=== PATIENT | female | born 2000 | race Caucasian/White ===

== ENCOUNTER → 2019-06-10 | Outpatient (CLI) | payer OTHER ==
[2019-06-10 12:34] LABS: BASOPHILS % (AUTO) 0 % (0-10); EOSINOPHILS % (AUTO) 1 % (0-10); HEMATOCRIT 33 % (35-52); HEMOGLOBIN 11.2 G/DL (11.5-16.0); LYMPHOCYTES % (AUTO) 20 % (12-44); MEAN CORPUSCULAR HEMOGLOBIN 33 PG (25-34); MEAN CORPUSCULAR HGB CONC 34 G/DL (32-36); MEAN CORPUSCULAR VOLUME 97 FL (80-99); MEAN PLATELET VOLUME 8.6 FL (7.4-10.4); MONOCYTES % (AUTO) 7 % (0-12); NEUTROPHILS % (AUTO) 71 % (42-75); PLATELET COUNT 226 10^3/uL (130-400); RED CELL DISTRIBUTION WIDTH 11.8 % (10.0-14.5); WHITE BLOOD COUNT 7.8 10^3/uL (4.3-11.0)
[2019-06-10 12:35] LABS: EOSINOPHILS # (AUTO) 0.1 10^3/uL (0.0-0.3); LYMPHOCYTES # (AUTO) 1.6 X 10^3 (1.0-4.0); MONOCYTES # (AUTO) 0.6 X 10^3 (0.0-1.0); NEUTROPHILS # (AUTO) 5.5 X 10^3 (1.8-7.8)
== END ==
LOC: LAB FS 12:14
PROVIDERS: ATTEND Family Medicine
DX: O26.899 Other specified pregnancy related conditions, unspecified trimester (principal)
CPT/HCPCS: 36415; 85025; 86780; 86850

== ENCOUNTER → 2019-07-26 | Outpatient (CLI) | payer OTHER | LOC: LABNPT 15:11 | PROVIDERS: ATTEND Family Medicine | DX: Z34.90 Encounter for supervision of normal pregnancy, unspecified, unspecified trimester (principal); Z3A.00 Weeks of gestation of pregnancy not specified | CPT/HCPCS: 87081 ==

== ENCOUNTER 2019-08-23 05:49 | Inpatient (IN) | payer OTHER ==
[~2019-08-23] VITALS: Ht 167.7 cm; Wt 64.4 kg
[2019-08-23] VITALS (49 sets, daily range): BP systolic 88–131; BP diastolic 51–82
--- OUTSIDE RECORDS SUMMARY | 2019-08-23 05:54 | XMS REPORT | Continuity of Care Document ---
Author Organization Unknown Address Unknown Phone Unavailable Allergies There is no data. Medications There is no data. Problems Date Dx Coded Attending Type Code Diagnosis Diagnosed By 06/12/2019 ANALIA POLO MD Ot O26.899 OT RELATED CONDITIONS, UNSPEC 07/12/2019 ANALIA POLO MD Ot O26.899 OT RELATED CONDITIONS, UNSPEC 07/26/2019 ANALIA POLO MD, Ot O26.899 OT RELATED CONDITIONS, UNSPEC 08/19/2019 ANALIA POLO MD Ot Z34.90 ENCNTR FOR SUPRVSN OF NORMAL , 08/19/2019 ANALIA POLO MD Ot Z3A.00 WEEKS OF GESTATION OF NOT SPEC 08/20/2019 ANALIA POLO MD Ot Z34.90 ENCNTR FOR SUPRVSN OF NORMAL , 08/20/2019 ANALIA POLO MD Ot Z3A.00 WEEKS OF GESTATION OF NOT SPEC 08/20/2019 ANALIA POLO MD Ot Z34.90 ENCNTR FOR SUPRVSN OF NORMAL , 08/20/2019 ANALIA POLO MD Ot Z3A.00 WEEKS OF GESTATION OF NOT SPEC Procedures There is no data. Results Test Result Range GC/CHLAMYDIA (SWAB OR URINE)-RAPID - 13:10 CHLAMYDIA TRACHOMATIS RNA, TMA NOT DETECTED NOT DETECTED NEISSERIA GONORRHOEAE RNA, TMA NOT DETECTED NOT DETECTED COMMENT NRG ANTIBODY SCREEN - 05/10/19 13:35 ANTIBODY SCREEN, RBC W/REFL ID, TITER AND AG NO ANTIBODIES DETECTED NRG SYPHILIS (RPR W/ REFLEX CONFIRMATION) - 05/10/19 13:35 RPR (DX) W/REFL TITER AND CONFIRMATORY TESTING NON-REACTIVE NON-REACTIVE HEP B SURFACE ANTIGEN - 05/10/19 13:35 HEPATITIS B SURFACE ANTIGEN NON-REACTIVE NON-REACTIVE RUBELLA IMMUNE STATUS - 05/10/19 13:35 RUBELLA ANTIBODY (IGG) <0.90 index NRG CULTURE, URINE - 05/10/19 13:35 CULTURE, URINE, ROUTINE SEE NOTE NRG Streptococcus agalactiae detection by or ganism specific culture - 07/26/19 00:00 QUANTITY OF GROWTH . NRG Streptococcus agalactiae detection by organism specifi c culture [id number] NRG Encounters ACCT No. Visit Date/Time Discharge Status Pt. Type Provider Facility Loc./Unit Complaint [id number] 05/10/2019 11:40:00 05/10/2019 23:59: 59 CLS Outpatient ANALIA POLO [facility] [id number] 05/10/2019 11:40:00 Document Registration [id number] 07/26/2019 15:11:00 020 23:59:59 CLS Outpatient ANALIA POLO MD [facility] LABNPT Z34.90 [id number] 06/10/2019 12:14:00 020 23:59:59 CLS Outpatient ANALIA POLO MD [facility] LAB FS O26.899
--- NOTE | 2019-08-23 06:00 | NUR ---
CHEYENNE ABDULLAHI presented to unit via AMBULATORY from ED, accompanied by S/O, with c/o INDUCTION 41 06/01. CHEYENNE ABDULLAHI weighed, gowned, voided, and to bed. EFHM and TOCO applied, VS taken. CHEYENNE ABDULLAHI oriented to bed controls, call light, TV, heat, and A/C controls.
[2019-08-23] MEDS: D5 LR IV SOLUTION 1,000 ML IV SCH ×2 (06:29→14:25)
[2019-08-23 06:33] LABS: BASOPHILS % (AUTO) 0 % (0-10); EOSINOPHILS # (AUTO) 0.1 10^3/uL (0.0-0.3); EOSINOPHILS % (AUTO) 1 % (0-10); HEMATOCRIT 35 % (35-52); HEMOGLOBIN 11.8 G/DL (11.5-16.0); LYMPHOCYTES # (AUTO) 1.9 X 10^3 (1.0-4.0); LYMPHOCYTES % (AUTO) 24 % (12-44); MEAN CORPUSCULAR HEMOGLOBIN 32 PG (25-34); MEAN CORPUSCULAR HGB CONC 34 G/DL (32-36); MEAN CORPUSCULAR VOLUME 95 FL (80-99); MEAN PLATELET VOLUME 9.8 FL (7.4-10.4); MONOCYTES # (AUTO) 0.8 X 10^3 (0.0-1.0); MONOCYTES % (AUTO) 10 % (0-12); NEUTROPHILS # (AUTO) 5.3 X 10^3 (1.8-7.8); NEUTROPHILS % (AUTO) 66 % (42-75); PLATELET COUNT 230 10^3/uL (130-400); RED CELL DISTRIBUTION WIDTH 12.7 % (10.0-14.5)
[2019-08-23] MEDS ORDERED: OXYTOCIN PRE-MIX DRIP 500 ML IV ONE (07:22)
[2019-08-23] MEDS ORDERED: OXYTOCIN PRE-MIX DRIP 500 ML IV SCH ×2 (07:29→16:02)
[2019-08-23] MEDS ORDERED: ONDANSETRON 4 MG/2 ML (SDV) Z0FRAN ONE (07:54)
[2019-08-23] MEDS ORDERED: ONDANSETRON 4 MG/2 ML (SDV) Z0FRAN IVP PRN (08:00)
[2019-08-23] MEDS ORDERED: fentaNYL INJECTION 100 MCG/2 ML AMP ONE ×2 (09:14→09:57)
[2019-08-23] MEDS ORDERED: fentaNYL INJECTION 100 MCG/2 ML AMP IVP PRN (09:30)
[2019-08-23] MEDS ORDERED: fentaNYL 2 mcg/ml BUPIVA 0.125 100 ML ONE (09:53)
--- NOTE | 2019-08-23 09:54 | NUR ---
anesthesia notified of pt's request for epidural placement.
[2019-08-23] MEDS ORDERED: BUPIVACAINE 0.25% 30 ML (SENSORCAINE) VIAL ONE (09:57)
--- NOTE | 2019-08-23 10:04 | NUR ---
here for epidural placement. Procedure explained, consent reviewed and signed by anesthesia. Questions answered to patient's satisfaction. Time out taken to verify correct patient/procedure. 1008-Patient up to side of bed, assisted into sitting position. Betadine prep done x3 and sterile drape applied. 1014- Local done, see anesthesia record. 1019-Test dose given, see anesthesia record for drug and dosage. Epidural catheter secured in place. Epidural placement complete. 1022- Assisted back into bed, monitors adjusted. Epidural dosed, see anesthesia record. Epidural of Fentanyl/Bupvicaine @12cc/hr stated per pump. Patient tolerated procedure well.
[2019-08-23] MEDS ORDERED: LACTATED RINGERS 1,000 ML IV ONE (10:35)
[2019-08-23] MEDS ORDERED: CATHETER FLUSH 10 ML SYR IV PRN (10:45)
[2019-08-23] MEDS ORDERED: diphenhydrAMINE 50 MG/ML INJ (BENADRYL) IV PRN (10:45)
[2019-08-23] MEDS ORDERED: EPIDURAL (fentaNYL 2 MCG/ML BUPIVA 0.125%)100 ML BAG EPI SCH (10:45)
[2019-08-23] MEDS ORDERED: NALOXONE 0.4 MG/ML 1 ML (NARCAN) VIAL IV PRN (10:45)
[2019-08-23] MEDS ORDERED: ONDANSETRON 4 MG/2 ML (SDV) Z0FRAN IV PRN (10:45)
[2019-08-23] MEDS ORDERED: LACTATED RINGERS 2,000 ML IV ONE (12:43)
--- NOTE | 2019-08-23 14:02 | History & Physical-OB ---
OB - Chief Complaint & HPI Date/Time Date of Admission: Date of Admission: Aug 23, 2019 at 05:49 Date seen by a Provider: Aug 23, 2019 Time Seen by a Provider: 14:00 Chief Complaint/History OB-Reason for Admission/Chief: Induction of Labor Hx : 1 Hx Para: 0 Expected Date of Delivery: Aug 14, 2019 Gestational Age in Weeks: 41 Gestational Age in Days: 1 Indication for induction: post dates Admission Nurse Assessment Rev: Yes Allergies and Home Medications Allergies Coded Allergies: No Known Drug Allergies (Unverified , 08/23/19) Patient Home Medication List Home Medication List Reviewed: Yes OB - History Hx of Present Care: Yes Ultrasounds: Normal mid trimester US Obstetrical Complications: None Medical Complications: None Delivery History Adverse Rxn to Tranfusion: No Patient Past Medical History previously healthy Social History/Family History Recent Infectious Disease Expo: No Alcohol Use: Denies Use Recreational Drug Use: No OB - Admission Exam Physical Exam Vitals: Vital Signs 08/23/19 08/23/19 10:15 12:00 Temp 36.7 Pulse 59 Resp 18 B/P (MAP) 107/60 (76) Pulse Ox 98 O2 Delivery Room Air HEENT: NCAT Heart: Rhythm Normal Lungs: Clear Abdomen: Gravid Extremities: Normal Reflexes: Normal Cervical Dilatation: 7cm Effacement: 100% Station: 0 Membranes: Ruptured Amniotic Fluid: Thin Meconium Heart Rate: 120's Accelerations: Accelerations Present Decelerations: Early Decelerations Short Term Variability: Present Group Home Variability: Average (6-25) Contractions on Admission: < 5 Minutes Apart Labs Laboratory Tests Test 08/23/19 06:10 Range/Units White Blood Count 8.0 4.3-11.0 10^3/uL Red Blood Count 3.64 L 4.35-5.85 10^6/uL Hemoglobin 11.8 11.5-16.0 G/DL Hematocrit 35 35-52 % Mean Corpuscular Volume 95 80-99 FL Mean Corpuscular Hemoglobin 32 25-34 PG Mean Corpuscular Hemoglobin Concent 34 32-36 G/DL Red Cell Distribution Width 12.7 10.0-14.5 % Platelet Count 230 130-400 10^3/uL Mean Platelet Volume 9.8 7.4-10.4 FL Neutrophils (%) (Auto) 66 42-75 % Lymphocytes (%) (Auto) 24 12-44 % Monocytes (%) (Auto) 10 0-12 % Eosinophils (%) (Auto) 1 0-10 % Basophils (%) (Auto) 0 0-10 % Neutrophils # (Auto) 5.3 1.8-7.8 X 10^3 Lymphocytes # (Auto) 1.9 1.0-4.0 X 10^3 Monocytes # (Auto) 0.8 0.0-1.0 X 10^3 Eosinophils # (Auto) 0.1 0.0-0.3 10^3/uL Basophils # (Auto) 0.0 0.0-0.1 10^3/uL OB - Assessment/Plan/Diagnosis Assessment Admission Dx Induction of labor at 41 1/7 wga. Admission Status: Inpatient Order (span 2 midnights) Reason for Inpatient Admission: Induction of labor Plan Plan: Induction Induction Method: per Pitocin Protocol Other Plan Pain controlled with epidural. GBS negative. Pitocin for induction. ANALIA POLO MD Aug 23, 2019 14:02
--- NOTE | 2019-08-23 15:15 | NUR ---
FFu/1.
[2019-08-23] MEDS ORDERED: LIDOCAINE/EPI 2% 1:200,00 (XYLOCAINE) 10 ML VIAL ONE (15:16)
[2019-08-23] MEDS ORDERED: MINERAL OIL CONCENTRATE 99.9% 15 ML UDC ONE (15:16)
--- NOTE | 2019-08-23 16:07 | OB Labor & Delivery Record ---
Vag Delivery Note Vag Delivery Note Date of Delivery: 08/23/19 Preoperative Diagnosis: Kassidy Mcclellan is a (19 /Para 1 / 0, Gestational Age (wks)41with [1 day] Postoperative Diagnosis: Same Surgeon: ANALIA POLO Sheeter Waxer Operator: [none] Anesthesia: [epidural] Delivery Type: [] Findings: [] Viable [male] infant, apgars [8/9], weight [8 pounds 1 ounce] Lacerations: 2nd degree perineal Intact placenta with 3 vessel cord. One loose nuchal cord Estimated Blood Loss: [300] ml Complications: None Condition: Stable Description of Procedure: The patient is a 19 year old female who presented [for induction of labor]. She was admitted and informed consent was obtained. Her labor course was remarkable for [nothing] She progressed to complete dilatation and began to push. She was then set up for delivery. The 's head was delivered atraumatically in the [OA] position. The shoulders and remainder of the infant's body were then delivered without difficulty. Upon delivery, the head was held below the level of the perineum and the mouth and nares were bulb suctioned. The cord was doubly clamped and cut by father of the baby on maternal abdomen. An intact placenta with 3-vessel cord delivered via Liliana and there was found to be minimal bleeding.~ Vigorous fundal massage was performed and the fundus was found to be firm. IV oxytocin was given. Examination of the vagina and perineum revealed a [2nd degree perineal] laceration repaired in the usual fashion with 3-0 vicryl suture. Following the repair, sponge, instrument and needle counts were correct. Mom and baby were both in stable condition in the labor suite. Vitals - Labs Vital Signs - I&O Vital Signs Date Time Temp Pulse Resp B/P (MAP) Pulse Ox O2 Delivery O2 Flow Rate FiO2 08/23/19 14:45 46 18 91/54 (66) 96 Room Air 08/23/19 14:30 56 18 103/60 (74) 96 Room Air 08/23/19 14:15 56 18 103/60 (74) 96 Room Air 08/23/19 14:00 36.5 58 18 113/70 (84) 99 Room Air 08/23/19 13:45 49 18 107/64 (78) 99 Room Air 08/23/19 13:30 51 18 110/68 (82) 98 Room Air 08/23/19 13:15 52 18 109/66 (80) 99 Room Air 08/23/19 13:00 59 18 107/71 (83) 99 Room Air 08/23/19 12:45 50 18 112/60 (77) 98 Room Air 08/23/19 12:30 52 18 110/64 (79) 98 Room Air 08/23/19 12:15 37.0 44 18 107/62 (77) 97 Room Air 08/23/19 12:00 59 18 107/60 (76) 98 Room Air 08/23/19 11:45 51 18 105/64 (78) 98 Room Air 08/23/19 11:30 55 18 102/65 (77) 98 Room Air 08/23/19 11:15 55 18 109/69 (82) 99 Room Air 08/23/19 11:05 51 18 114/62 (79) 98 Room Air 08/23/19 11:00 53 115/58 (77) 98 Room Air 08/23/19 10:55 48 105/58 (74) 97 Room Air 08/23/19 10:50 55 18 96/56 (69) 100 Room Air 08/23/19 10:45 50 103/64 (77) 98 Room Air 08/23/19 10:40 53 105/57 (73) 98 Room Air 08/23/19 10:34 56 88/51 (63) 97 Room Air 08/23/19 10:20 56 18 116/62 (80) 99 Room Air 08/23/19 10:15 36.7 67 18 125/78 (94) 100 Room Air 08/23/19 10:10 61 18 125/75 (92) 100 Room Air 08/23/19 10:05 62 18 113/77 (89) Room Air 08/23/19 09:50 51 18 100/59 (73) Room Air 08/23/19 09:35 55 18 105/56 (72) Room Air 08/23/19 09:20 64 18 112/70 (84) Room Air 08/23/19 09:05 64 18 114/72 (86) Room Air 08/23/19 08:50 60 18 117/71 (86) Room Air 08/23/19 08:35 63 18 112/76 (88) Room Air 08/23/19 08:20 49 18 108/71 (83) Room Air 08/23/19 08:05 45 18 120/76 (91) Room Air 08/23/19 07:55 72 18 92/59 (70) Room Air 08/23/19 07:40 36.8 85 18 100/70 (80) 98 Room Air 08/23/19 06:29 36.6 57 18 98 Room Air Labs Laboratory Tests 08/23/19 06:10: White Blood Count 8.0, Red Blood Count 3.64L, Hemoglobin 11.8, Hematocrit 35, Mean Corpuscular Volume 95, Mean Corpuscular Hemoglobin 32, Mean Corpuscular Hemoglobin Concent 34, Red Cell Distribution Width 12.7, Platelet Count 230, Mean Platelet Volume 9.8, Neutrophils (%) (Auto) 66, Lymphocytes (%) (Auto) 24, Monocytes (%) (Auto) 10, Eosinophils (%) (Auto) 1, Basophils (%) (Auto) 0, Neutrophils # (Auto) 5.3, Lymphocytes # (Auto) 1.9, Monocytes # (Auto) 0.8, Eos inophils # (Auto) 0.1, Basophils # (Auto) 0.0 ANALIA POLO MD Aug 23, 2019 16:06
[2019-08-23] MEDS ORDERED: TETANUS,DIPTH,PERTUSS P/F (BOOSTRIX) 0.5 ML VIAL IM ONE (16:15)
[2019-08-23] MEDS ORDERED: BENZOCAINE/MENTHOL (DERMOPLAST) 60 ML CAN TP PRN (16:15)
[2019-08-23] MEDS ORDERED: MEASLES,MUMPS,RUBELLA 1 EA INJ SQ ONE (16:15)
[2019-08-23] MEDS ORDERED: WITCH HAZEL(TUCKS) 40 EA JAR TOP PRN (16:15)
--- NOTE | 2019-08-23 16:42 | NUR ---
FFu/1. and remain @ side.
--- NOTE | 2019-08-23 17:15 | NUR ---
FFu/1. in arms. no sx's of distress noted.
[2019-08-23] MEDS: ACETAMINOPHEN 500 MG TAB (TYLENOL) PO SCH (18:25)
[2019-08-23] MEDS: IBUPROFEN 600 MG (MOTRIN) TAB PO SCH (18:25)
--- NOTE | 2019-08-23 18:35 | NUR ---
FFu/1. moderate rubra noted. no clots expressed. keyon-care offered. v-pad and panties in place. pt transferred to room 309 via w/c with and infant @ side.
--- NOTE | 2019-08-23 19:00 | NUR ---
report given to TERRY Saleh.
--- NOTE | 2019-08-23 21:30 | NUR ---
Pt calls rn to room, reports not making it to the bathroom, pt assisted standby to bathroom, pericare assist. Bed pads saturated in urine and bedding changed. First void since delivery noted. Pt denies further needs. will cont to monitor.
[2019-08-23] MEDS ORDERED: CATHETER FLUSH 10 ML SYR IV SCH (22:00)
[2019-08-24 00:23] VITALS: BP 85/47
[2019-08-24] MEDS: IBUPROFEN 600 MG (MOTRIN) TAB PO SCH ×2 (00:23→05:29)
[2019-08-24] MEDS: DOCUSATE SODIUM 100 MG (COLACE) CAP PO SCH ×2 (00:23→09:31)
[2019-08-24] MEDS: ACETAMINOPHEN 500 MG TAB (TYLENOL) PO SCH ×2 (01:57→09:31)
[2019-08-24 05:31] VITALS: BP 98/58
[2019-08-24 05:41] LABS: BASOPHILS % (AUTO) 0 % (0-10); EOSINOPHILS % (AUTO) 0 % (0-10); HEMATOCRIT 29 % (35-52); HEMOGLOBIN 9.6 G/DL (11.5-16.0); LYMPHOCYTES # (AUTO) 1.6 X 10^3 (1.0-4.0); LYMPHOCYTES % (AUTO) 16 % (12-44); MEAN CORPUSCULAR HEMOGLOBIN 32 PG (25-34); MEAN CORPUSCULAR HGB CONC 33 G/DL (32-36); MEAN CORPUSCULAR VOLUME 97 FL (80-99); MEAN PLATELET VOLUME 9.5 FL (7.4-10.4); MONOCYTES # (AUTO) 0.8 X 10^3 (0.0-1.0); MONOCYTES % (AUTO) 8 % (0-12); NEUTROPHILS # (AUTO) 7.8 X 10^3 (1.8-7.8); NEUTROPHILS % (AUTO) 76 % (42-75); PLATELET COUNT 176 10^3/uL (130-400); RED CELL DISTRIBUTION WIDTH 12.9 % (10.0-14.5); WHITE BLOOD COUNT 10.3 10^3/uL (4.3-11.0)
[2019-08-24 09:25] VITALS: BP 98/48
--- NOTE | 2019-08-24 10:32 | Anesthesia-Regional Post-Op ---
Regional Patient Condition Mental Status: Alert, Oriented x3 Circulation: Same as Pre-Op Headache: Absent Sensation: Full Recovery Motor Block: Absent Post Op Complications Complications None Follow Up Care/Instructions Patient Instructions None needed. Anesthesia/Patient Condition Patient is doing well, no complaints, stable vital signs, no apparent adverse anesthesia problems. No complications reported per nursing. SARA OLSON CRNA Aug 24, 2019 10:32
--- NOTE | 2019-08-24 11:22 | Discharge Summary ---
Discharge Inst-[facility] Reconcile Patient Problems Problems Reviewed?: Yes Depart Medications New, Converted or Re-Newed RX: Call to Patients Pharmacy Follow Up/Instructions Goal/Follow Up: [address] Mai Activity Activity: Activity as Tolerated Driving Instructions: You May Drive NO SMOKING: NO SMOKING Nothing Inside Vagina: No Douching, No [place], No Tampons Diet Discharge Diet: No Restrictions Symptoms to Report to : Bleeding Excessive, Fever Over 101 Degrees F, Pain/Pressure in Jaw, Vaginal Bleeding Increase, Vaginal Discharge ANALIA Bojorquez MD Aug 24, 2019 11:22
--- NOTE | 2019-08-24 11:25 | Discharge Summary ---
Diagnosis/Chief Complaint Date of Admission Aug 23, 2019 at 05:49 Date of Discharge Admission Diagnosis Admission Diagnosis Term induction of labor. Discharge Diagnosis Term vaginal delivery at 41 1/7 wga. Problems/Diagnosis: (1) care following vaginal delivery Discharge Summary-OBS Procedures None. Discharge Physical Examination Allergies: Coded Allergies: No Known Drug Allergies (Unverified , 08/23/19) Vitals & I&Os Intake and Output 08/24/19 00:00 Intake Total 1500 ml Balance 1500 ml Vital Sign - Last 12Hours Date Time Temp Pulse Resp B/P (MAP) Pulse Ox O2 Delivery O2 Flow Rate FiO2 08/24/19 05:31 36.8 56 18 98/58 (71) 98 Room Air 08/23/19 15:32 15.00 General Appearance: Alert, Oriented X3 HEENT: Atraumatic Cardiovascular: Regular Rate Abdominal: Other (fundus firm below umbilicus) Extremities: No Edema Skin: No Rashes Neuro: Normal Gait Psych/Mental Status: Mental Status NL Hospital Course Patient's post- course was uneventful. Labs Laboratory Tests 08/24/19 05:28: White Blood Count 10.3, Red Blood Count 3.01L, Hemoglobin 9.6L, Hematocrit 29L, Mean Corpuscular Volume 97, Mean Corpuscular Hemoglobin 32, Mean Corpuscular Hemoglobin Concent 33, Red Cell Distribution Width 12.9, Platelet Count 176, Mean Platelet Volume 9.5, Neutrophils (%) (Auto) 76H, Lymphocytes (%) (Auto) 16, Monocytes (%) (Auto) 8, Eosinophils (%) (Auto) 0, Basophils (%) (Auto) 0, Neutrophils # (Auto) 7.8, Lymphocytes # (Auto) 1.6, Monocytes # (Auto) 0.8, Eosinophils # (Auto) 0.0, Basophils # (Auto) 0.0 Discharge Instructions to patient/family Please see electronic discharge instructions given to patient. Discharge Medications Reviewed and agree with Discharge Medication list on patient's Discharge Instruction sheet Clinical Quality Measures DVT/VTE Risk/Contraindication: Risk Factor Score Per Nursin RFS Level Per Nursing on Admit: 1=Low/No VTE PPX ANALIA POLO MD Aug 24, 2019 11:25
--- NOTE | 2019-08-24 13:30 | NUR ---
Pt and desire to go home today. They will have a ride available and car seat. (Ramón) Addendum: 08/24/19 at 1516 by WADE MOYER RN Pt refuses all vaccines - rubella, flu, and Tdap.
[2019-08-24 13:45] VITALS: BP 102/51
[2019-08-24 15:06] VITALS: BP 102/51
--- NOTE | 2019-08-24 17:20 | NUR ---
Discharge instructions read and given to pt/. Verbalizes understanding. Awaiting ride.
== END 2019-08-24 18:45 | disposition home or self-care (01) | DRG 807 ==
LOC: LDRP 05:49
PROVIDERS: ADMIT Family Medicine; ATTEND Family Medicine
PROC: 10E0XZZ Delivery of Products of Conception, External Approach (ICD-10-PCS; principal; 2019-08-23)
PROC: 0KQM0ZZ Repair Perineum Muscle, Open Approach (ICD-10-PCS; 2019-08-23)
PROC: 3E033VJ Introduction of Other Hormone into Peripheral Vein, Percutaneous Approach (ICD-10-PCS; 2019-08-23)
DX: O48.0 Post-term pregnancy (principal); O70.1 Second degree perineal laceration during delivery; O77.0 Labor and delivery complicated by meconium in amniotic fluid; O69.81X0 Labor and delivery complicated by cord around neck, without compression, not applicable or unspecified; Z37.0 Single live birth; Z3A.41 41 weeks gestation of pregnancy
CPT/HCPCS: 36415; 85025; 86850; 86900; 86901

== ENCOUNTER → 2020-09-25 | Outpatient (CLI) | payer SELFPAY | LOC: LAB FS 15:24 | PROVIDERS: ATTEND Family Medicine | DX: Z33.1 Pregnant state, incidental (principal) | CPT/HCPCS: 36415; 87210; 87491; 87591 ==

== ENCOUNTER → 2020-09-25 | Outpatient (CLI) | payer SELFPAY ==
[2020-09-25 13:20] LABS: HEMOGLOBIN 11.5 G/DL (11.5-16.0); MEAN PLATELET VOLUME 9.3 FL (7.4-10.4); WHITE BLOOD COUNT 8.7 10^3/uL (4.3-11.0)
== END ==
LOC: LAB FS 12:05
PROVIDERS: ATTEND Family Medicine
DX: Z34.92 Encounter for supervision of normal pregnancy, unspecified, second trimester (principal); B37.3 Candidiasis of vulva and vagina; Z3A.00 Weeks of gestation of pregnancy not specified
CPT/HCPCS: 36415; 85027; 86703; 86762; 86780; 86850; 86900; 86901; 87088; 87340

== ENCOUNTER → 2020-10-24 | Outpatient (CLI) | payer OTHER | LOC: LAB FS 11:01 | PROVIDERS: ATTEND Family Medicine | DX: Z34.92 Encounter for supervision of normal pregnancy, unspecified, second trimester (principal); Z3A.00 Weeks of gestation of pregnancy not specified | CPT/HCPCS: 86850 ==

== ENCOUNTER → 2020-11-20 | Outpatient (CLI) | payer SELFPAY | LOC: LAB FS 15:46 | PROVIDERS: ATTEND Family Medicine | DX: Z34.92 Encounter for supervision of normal pregnancy, unspecified, second trimester (principal); Z3A.00 Weeks of gestation of pregnancy not specified | CPT/HCPCS: 87088 ==

== ENCOUNTER 2020-12-25 15:55 | Inpatient (IN) | payer OTHER ==
[2020-12-25] VITALS (8 sets, daily range): BP systolic 97–121; BP diastolic 54–76
[~2020-12-25] VITALS: Ht 169 cm; Wt 59.8 kg
[2020-12-25] MEDS ORDERED: AMPICILLIN FOR IV USE 2,000 MG in WATER (STERILE) FOR INJECTION 14.8 ML IV SCH (16:11)
[2020-12-25] MEDS ORDERED: MINERAL OIL CONCENTRATE 99.9% 15 ML UDC TOP PRN (16:15)
[2020-12-25] MEDS ORDERED: D5 LR IV SOLUTION 1,000 ML IV SCH (16:15)
[2020-12-25] MEDS ORDERED: AMPICILLIN 2,000 MG/14.8 ML (IV USE) ONE (16:21)
[2020-12-25] MEDS ORDERED: D5 LR IV SOLUTION 1,000 ML IV ONE (16:21)
[2020-12-25 16:47] LABS: BASOPHILS % (AUTO) 0 % (0-10); EOSINOPHILS # (AUTO) 0.1 10^3/uL (0.0-0.3); EOSINOPHILS % (AUTO) 1 % (0-10); HEMATOCRIT 37 % (35-52); HEMOGLOBIN 12.7 g/dL (11.5-16.0); LYMPHOCYTES # (AUTO) 1.8 10^3/uL (1.0-4.0); LYMPHOCYTES % (AUTO) 28 % (12-44); MEAN CORPUSCULAR HEMOGLOBIN 33 pg (25-34); MEAN CORPUSCULAR HGB CONC 34 g/dL (32-36); MEAN CORPUSCULAR VOLUME 96 fL (80-99); MEAN PLATELET VOLUME 9.6 fL (9.0-12.2); MONOCYTES # (AUTO) 0.5 10^3/uL (0.0-1.0); MONOCYTES % (AUTO) 8 % (0-12); NEUTROPHILS # (AUTO) 3.9 10^3/uL (1.8-7.8); NEUTROPHILS % (AUTO) 62 % (42-75); PLATELET COUNT 195 10^3/uL (130-400); WHITE BLOOD COUNT 6.3 10^3/uL (4.3-11.0)
[2020-12-25] MEDS ORDERED: LIDOCAINE/EPI 2% 1:200,00 (XYLOCAINE) 20 ML VIAL ONE (19:17)
[2020-12-25] MEDS ORDERED: OXYTOCIN PRE-MIX DRIP 1,000 ML IV ONE (19:18)
[2020-12-25] MEDS ORDERED: AMPICILLIN FOR IV USE 1,000 MG in WATER (STERILE) FOR INJECTION 7.4 ML IV SCH (20:15)
--- NOTE | 2020-12-25 21:18 | History & Physical-OB ---
OB - Chief Complaint & HPI Date/Time Date of Admission: Date of Admission: Dec 25, 2020 at 15:55 Date seen by a Provider: Dec 25, 2020 Time Seen by a Provider: 15:00 Chief Complaint/History OB-Reason for Admission/Chief: Onset of Labor Hx : 2 Hx Para: 1 Expected Date of Delivery: Dec 29, 2020 Gestational Age in Weeks: 39 Gestational Age in Days: 4 Other reason for admission: She is a patient that started PNC with Dr. Mai and transferred care to dc at 36 weeks. History of Labs O-/- HIV - VDRL NR HBsAg - Rub NI GBS + received Rhogam 10/24/2020 Other Presented for routine Ob visit today and was complaining of cramping like menses. States it has been regular but not frequent and started last night. On exam she was visually uncomfortable and irregular contractions were noted to be minimal to moderate. She was examined and found to be 80--90% effaced and 6 cm dilated but intact She was sent in for labor to women's services. GBS + so will start antibiotic prophylaxis and then augment/AROM as necessary Allergies and Home Medications Allergies Coded Allergies: No Known Drug Allergies (Unverified , 08/23/19) Home Medications No Active Prescriptions or Reported Meds Patient Home Medication List Home Medication List Reviewed: Yes OB - History Hx of Present Ultrasounds: Normal mid trimester US Obstetrical Complications: None Medical Complications: None Information Induced Hypertension: No Maternal Gestational Diabetes: No Hemorrhage: No Obstetrical History Hx : 2 Hx Para: 1 Hx # Term Pregnancies: 1 Hx # Pregnancies: 0 Number of Living Children: 1 Hx Multiple Gestation: No Hx Ectopic : No Hx Complication: No Hx Induced Hypertens: No Hx Maternal Gestational Diabet: No Hx Hemorrhage: No Delivery History Hx Dystocia: Yes Hx Forceps Assisted Delivery: Yes Hx Vacuum Extraction Assisted: Yes Hx Placenta Abnormality: Yes Hx Distress: Yes Hx Large For Gestational Age I: Yes Hx Small for Gestational Age I: Yes Hx Section: Yes Hx Blood Disorders: Yes Adverse Rxn to Tranfusion: No Patient Past Medical History previously healthy Social History/Family History Alcohol Use: Denies Use Recreational Drug Use: No Smoking Cessation: Never smoker Immunizations Hepatitis A: No Hepatitis B: No Tetanus Booster (TDap): Unknown Rubella: not immune RPR/VDRL: Negative GBS Status: Positive HBsAG: Negative OB - Admission Exam Physical Exam Vitals: Vital Signs 12/25/20 12/25/20 12/25/20 16:15 18:00 20:00 Temp 36.8 Pulse 51 Resp 18 B/P (MAP) 111/72 (85) Pulse Ox 100 O2 Delivery Non Rebreather Heart: Rhythm Normal Lungs: Clear Abdomen: Gravid Extremities: Normal Reflexes: Normal Cervical Dilatation: 6cm Effacement: 75% Station: -1 Membranes: Intact Heart Rate: 140's Accelerations: Accelerations Present Decelerations: No Decelerations Short Term Variability: Present Juvenile [employer] Officer Variability: Average (6-25) Contractions on Admission: 6-10 Minutes Apart Labs Laboratory Tests Test 12/25/20 16:20 Range/Units White Blood Count 6.3 4.3-11.0 10^3/uL Red Blood Count 3.84 3.80-5.11 10^6/uL Hemoglobin 12.7 11.5-16.0 g/dL Hematocrit 37 35-52 % Mean Corpuscular Volume 96 80-99 fL Mean Corpuscular Hemoglobin 33 25-34 pg Mean Corpuscular Hemoglobin Concent 34 32-36 g/dL Red Cell Distribution Width 12.5 10.0-14.5 % Platelet Count 195 130-400 10^3/uL Mean Platelet Volume 9.6 9.0-12.2 fL Immature Granulocyte % (Auto) 0 % Neutrophils (%) (Auto) 62 42-75 % Lymphocytes (%) (Auto) 28 12-44 % Monocytes (%) (Auto) 8 0-12 % Eosinophils (%) (Auto) 1 0-10 % Basophils (%) (Auto) 0 0-10 % Neutrophils # (Auto) 3.9 1.8-7.8 10^3/uL Lymphocytes # (Auto) 1.8 1.0-4.0 10^3/uL Monocytes # (Auto) 0.5 0.0-1.0 10^3/uL Eosinophils # (Auto) 0.1 0.0-0.3 10^3/uL Basophils # (Auto) 0.0 0.0-0.1 10^3/uL Immature Granulocyte # (Auto) 0.0 0.0-0.1 10^3/uL OB - Assessment/Plan/Diagnosis Assessment Assessment: other (Labor at 39 + weeks/GBS +) Admission Dx Labor GBS + Rh - Admission Status: Inpatient Order (span 2 midnights) Reason for Inpatient Admission: Labor Plan Plan: Expectant Management (anticipate . will arom and augment as needed. ) Induction Method: NOAM MONDRAGON DO Dec 25, 2020 21:18
[2020-12-25] MEDS ORDERED: OXYTOCIN PRE-MIX DRIP 500 ML IV SCH (21:30)
[2020-12-25] MEDS ORDERED: CATHETER FLUSH 10 ML SYR IV SCH (22:00)
[2020-12-25] MEDS ORDERED: fentaNYL 2 mcg/ml BUPIVA 0.125 0 ML ONE (22:52)
[2020-12-25] MEDS ORDERED: BUPIVACAINE 0.5% 30 ML (SENSORCAINE) VIAL ONE (23:12)
[2020-12-25] MEDS ORDERED: fentaNYL INJ 100 MCG/2 ML AMP ONE (23:12)
[2020-12-25] MEDS ORDERED: WITCH HAZEL(TUCKS) 40 EA JAR TOP PRN (23:30)
[2020-12-25] MEDS ORDERED: TETANUS,DIPTH,PERTUSS P/F (BOOSTRIX) 0.5 ML VIAL IM ONE (23:30)
[2020-12-25] MEDS ORDERED: MEASLES,MUMPS,RUBELLA 1 EA INJ SQ ONE (23:30)
[2020-12-25] MEDS ORDERED: NALOXONE 0.4 MG/ML 1 ML (NARCAN) VIAL IV PRN (23:30)
[2020-12-25] MEDS ORDERED: DIBUCAINE 1% OINTMENT 30 GM TUBE TOP PRN (23:30)
[2020-12-25] MEDS ORDERED: BENZOCAINE/MENTHOL (DERMOPLAST) 56 ML CAN TP PRN (23:30)
--- NOTE | 2020-12-25 23:32 | OB Labor & Delivery Record ---
Vag Delivery Note Vag Delivery Note Date of Delivery: 12/25/20 Preoperative Diagnosis: Kassidy Mcclellan is a 20 /Para 2 / 1, Gestational Age 39 3/7 weeks, labor, GBS + Postoperative Diagnosis: Same Surgeon: NOAM BISHOP Anesthesia: none Delivery Type: Findings: Viable male , apgars 8/9, weight 7#3ounces Lacerations: 1st degree not repaired Intact placenta with 3 vessel cord. Nuchal cord x 1 delivered through, body cord or shoulder dystocia Estimated Blood Loss: 400 ml Complications: None Condition: Stable Description of Procedure: The patient is a 20 year old female who presented 20 /Para 2 / 1, Gestational Age 39 3/7 weeks who presented to clinic in early with advanced cervical dilation. she is GBS + so ampicillin was started. She was admitted and informed consent was obtained. Her labor course was remarkable for AROM and then pitocin augmentation. She was admitted at 6 cm but was talia very irregularly albeit moderate to strong contractions. She was started on ampicillin. She received her second dose of ampicillin 4 hours after the first dose at that point she was still 8 cm dilated. She had a nicely reactive strip but then had a spontaneous deep deceleration. So the determination was to get her delivered as quickly as possible. So I did rupture membranes with clear fluid. There is a small amount of fluid noted. I did then augment labor when she had no cervical change in over 2 hours. She still had no cervical change in an hour and was asking for pain medicine or an epidural, but because she was 8 cm we opted for a spinal. She was set up for prep for the anesthesia and during this time, she progressed to complete dilatation. She was repositioned in the bed, and began to push. We were unable to set the bed up appropriately so delivered the baby in the bed. The infant's head was delivered atraumatically in the GRETCHEN position. The shoulders and remainder of the 's body were then delivered without difficulty. Upon delivery, the head was held below the level of the perineum and the mouth and nares were bulb suctioned. The cord was doubly clamped and cut and the infant was handed off to the pediatric staff. An intact placenta with 3- vessel cord delivered via Liliana and there was found to be minimal bleeding.~ Vigorous fundal massage was performed and the fundus was found to be firm. IV oxytocin was given. Examination of the vagina and perineum revealed a 1st degree laceration not repaired in the usual fashion. Following the delivery, sponge, instrument and needle counts were correct. Mom and baby were both in stable condition in the labor suite. Vitals - Labs Vital Signs - I&O Vital Signs Date Time Temp Pulse Resp B/P (MAP) Pulse Ox O2 Delivery O2 Flow Rate FiO2 12/25/20 22:45 75 18 97 Room Air 12/25/20 22:30 37.3 54 18 111/70 (84) 98 Room Air 12/25/20 22:00 63 18 98 Room Air 12/25/20 21:30 61 18 97/54 (68) 98 Room Air 12/25/20 21:00 53 18 110/64 (79) 100 Non Rebreather 12/25/20 20:00 51 18 100 Non Rebreather 12/25/20 18:00 55 18 111/72 (85) Room Air 12/25/20 16:15 36.8 61 20 99 Room Air Labs Laboratory Tests 12/25/20 16:20: White Blood Count 6.3, Red Blood Count 3.84, Hemoglobin 12.7, Hematocrit 37, Mean Corpuscular Volume 96, Mean Corpuscular Hemoglobin 33, Mean Corpuscular Hemoglobin Concent 34, Red Cell Distribution Width 12.5, Platelet Count 195, Mean Platelet Volume 9.6, Immature Granulocyte % (Auto) 0, Neutrophils (%) (Auto) 62, Lymphocytes (%) (Auto) 28, Monocytes (%) (Auto) 8, Eosinophils (%) (Auto) 1, Basophils (%) (Auto) 0, Neutrophils # (Auto) 3.9, Lymphocytes # (Auto) 1.8, Monocytes # (Auto) 0.5, Eosinophils # (Auto) 0.1, Basophils # (Auto) 0.0, Immature Granulocyte # (Auto) 0.0 NOAM BISHOP DO Dec 25, 2020 23:32
[2020-12-25] MEDS: OXYTOCIN PRE-MIX DRIP 500 ML IV SCH (23:52)
[2020-12-26] VITALS (10 sets, daily range): BP systolic 92–126; BP diastolic 54–81
[2020-12-26] MEDS: IBUPROFEN 600 MG (MOTRIN) TAB PO SCH ×4 (02:32→21:22)
[2020-12-26] MEDS: ACETAMINOPHEN 500 MG TAB (TYLENOL) PO SCH ×3 (03:38→21:22)
[2020-12-26] MEDS ORDERED: ACETAMINOPHEN 500 MG TAB (TYLENOL) ONE (03:38)
[2020-12-26] MEDS: OXYTOCIN PRE-MIX DRIP 500 ML IV SCH (04:43)
[2020-12-26 05:58] LABS: BASOPHILS % (AUTO) 0 % (0-10); EOSINOPHILS % (AUTO) 0 % (0-10); HEMATOCRIT 34 % (35-52); HEMOGLOBIN 11.5 g/dL (11.5-16.0); LYMPHOCYTES % (AUTO) 19 % (12-44); MEAN CORPUSCULAR HEMOGLOBIN 33 pg (25-34); MEAN CORPUSCULAR HGB CONC 34 g/dL (32-36); MEAN CORPUSCULAR VOLUME 97 fL (80-99); MEAN PLATELET VOLUME 9.6 fL (9.0-12.2); MONOCYTES # (AUTO) 0.7 10^3/uL (0.0-1.0); MONOCYTES % (AUTO) 7 % (0-12); NEUTROPHILS # (AUTO) 7.7 10^3/uL (1.8-7.8); NEUTROPHILS % (AUTO) 73 % (42-75); PLATELET COUNT 174 10^3/uL (130-400); WHITE BLOOD COUNT 10.5 10^3/uL (4.3-11.0)
[2020-12-26] MEDS ORDERED: CATHETER FLUSH 10 ML SYR IV SCH (06:00)
[2020-12-26] MEDS: FERROUS SULF 325 MG (IRON) TAB PO SCH (08:08)
[2020-12-26] MEDS: DOCUSATE SODIUM 100 MG (COLACE) CAP PO SCH ×2 (08:09→21:22)
[2020-12-26] MEDS: PRENATAL VITAMIN 1 EA TAB PO SCH (08:09)
[2020-12-27 04:00] VITALS: BP 91/53
[2020-12-27] MEDS: IBUPROFEN 600 MG (MOTRIN) TAB PO SCH (04:38)
[2020-12-27] MEDS: ACETAMINOPHEN 500 MG TAB (TYLENOL) PO SCH (04:38)
[2020-12-27] MEDS: PRENATAL VITAMIN 1 EA TAB PO SCH (08:29)
[2020-12-27] MEDS: DOCUSATE SODIUM 100 MG (COLACE) CAP PO SCH (08:29)
[2020-12-27] MEDS: FERROUS SULF 325 MG (IRON) TAB PO SCH (08:29)
[2020-12-27 08:30] VITALS: BP 100/64
--- NOTE | 2020-12-27 09:43 | Postpartum Progress Note ---
Note Note Day # 2 Subjective: Patient is without complaints. Ambulating, voiding. Tolerating a regular diet without nausea or vomiting. Normal lochia. Pain is well controlled with oral pain medications. Breast feeding. Objective: Physical Exam: General - Alert and oriented, no apparent distress Abdomen - Soft, appropriately tender to palpation, non-distended, fundus firm at umbilicus Extremities - no edema, negative Patty's bilaterally Assessment: Post- day # 2, status post vaginal delivery. Recovering well, hemodynamically stable Acute blood loss anemia Plan: Routine care. Encourage breast feeding. Encourage ambulation. Ferrous sulfate supplementation. Plan for discharge today Vitals - Labs Vital Signs - I&O Vital Signs Date Time Temp Pulse Resp B/P (MAP) Pulse Ox O2 Delivery O2 Flow Rate FiO2 12/27/20 04:00 37.0 58 18 91/53 (66) 98 Room Air 12/26/20 21:22 36.9 62 18 92/54 (67) 97 Room Air 12/26/20 16:15 36.7 74 18 106/71 (83) 97 Room Air 12/26/20 11:45 37.1 75 18 104/57 (73) 97 Room Air AUNG JOHNSON MANAGER [employer] Dec 27, 2020 09:43
== END 2020-12-27 11:45 | disposition home or self-care (01) | DRG 806 ==
LOC: LDRP 15:55
PROVIDERS: ADMIT Obstetrics & Gynecology; ATTEND Obstetrics & Gynecology
PROC: 10E0XZZ Delivery of Products of Conception, External Approach (ICD-10-PCS; principal; 2020-12-25)
DX: O99.824 Streptococcus B carrier state complicating childbirth (principal); D62 Acute posthemorrhagic anemia; Z37.0 Single live birth; O69.81X0 Labor and delivery complicated by cord around neck, without compression, not applicable or unspecified; O90.81 Anemia of the puerperium; O70.0 First degree perineal laceration during delivery; Z3A.39 39 weeks gestation of pregnancy
CPT/HCPCS: 36415; 85025; 86850; 86900; 86901

== ENCOUNTER 2022-10-18 04:29 | Inpatient (IN) | payer OTHER ==
[~2022-10-18] VITALS: Ht 165.1 cm; Wt 63.0 kg
[2022-10-18] VITALS (13 sets, daily range): BP systolic 93–130; BP diastolic 54–67
[2022-10-18] MEDS ORDERED: MINERAL OIL 30 ML UDC TOP PRN (04:45)
[2022-10-18] MEDS ORDERED: LIDOCAINE 1% INJ 20 ML VIAL IJ PRN (04:45)
[2022-10-18] MEDS ORDERED: D5 LR IV SOLUTION 1,000 ML IV SCH (04:45)
[2022-10-18] MEDS ORDERED: LIDOCAINE 1% INJ 10 ML VIAL ONE (05:05)
[2022-10-18] MEDS ORDERED: OXYTOCIN PRE-MIX DRIP 500 ML IV ONE ×2 (05:05→06:06)
[2022-10-18 05:06] LABS: BASOPHILS % (AUTO) 0 % (0-10); EOSINOPHILS % (AUTO) 0 % (0-10); HEMATOCRIT 36 % (35-52); HEMOGLOBIN 12.6 g/dL (11.5-16.0); LYMPHOCYTES # (AUTO) 1.4 10^3/uL (1.0-4.0); LYMPHOCYTES % (AUTO) 20 % (12-44); MEAN CORPUSCULAR HEMOGLOBIN 34 pg (25-34); MEAN CORPUSCULAR HGB CONC 36 g/dL (32-36); MEAN CORPUSCULAR VOLUME 95 fL (80-99); MEAN PLATELET VOLUME 9.5 fL (9.0-12.2); MONOCYTES # (AUTO) 0.5 10^3/uL (0.0-1.0); MONOCYTES % (AUTO) 7 % (0-12); NEUTROPHILS % (AUTO) 72 % (42-75); PLATELET COUNT 164 10^3/uL (130-400)
[2022-10-18] MEDS ORDERED: OXYTOCIN (PITOCIN) 10 UNIT/ML VIAL ONE (05:20)
[2022-10-18] MEDS ORDERED: METHYLERGONOVINE 0.2 MG/ML (METHERGINE) AMP ONE (05:25)
[2022-10-18] MEDS ORDERED: WITCH HAZEL(TUCKS) 40 EA JAR TOP PRN (06:00)
[2022-10-18] MEDS ORDERED: TETANUS,DIPTH,PERTUSS P/F (BOOSTRIX) 0.5 ML VIAL IM ONE (06:00)
[2022-10-18] MEDS ORDERED: MEASLES,MUMPS,RUBELLA 1 EA INJ SQ ONE (06:00)
[2022-10-18] MEDS ORDERED: OXYTOCIN PRE-MIX DRIP 500 ML IV SCH ×2 (06:00→08:00)
[2022-10-18] MEDS ORDERED: NALOXONE 0.4 MG/ML 1 ML (NARCAN) VIAL IV PRN (06:00)
[2022-10-18] MEDS ORDERED: BENZOCAINE/MENTHOL (DERMOPLAST) 56 ML CAN TP PRN (06:00)
[2022-10-18] MEDS ORDERED: DIBUCAINE 1% OINTMENT 28 GM TUBE TOP PRN (06:00)
[2022-10-18] MEDS ORDERED: CATHETER FLUSH 10 ML SYR IV SCH ×2 (06:00)
--- NOTE | 2022-10-18 06:11 | History & Physical-OB ---
OB - Chief Complaint & HPI Date/Time Date of Admission: Date of Admission: October 18, 2022 at 04:38 Date seen by a Provider: October 18, 2022 Time Seen by a Provider: 04:45 Chief Complaint/History OB-Reason for Admission/Chief: Onset of Labor Hx : 3 Hx Para: 2 Expected Date of Delivery: Oct 26, 2022 Gestational Age in Weeks: 38 Gestational Age in Days: 6 Admission Nurse Assessment Rev: Yes Allergies and Home Medications Allergies Coded Allergies: No Known Drug Allergies (Unverified , 08/23/19) Patient Home Medication List Home Medication List Reviewed: Yes No Active Prescriptions or Reported Meds OB - History Hx of Present Care: Yes Ultrasounds: No ultrasounds Obstetrical Complications: None Medical Complications: None Information Induced Hypertension: No Maternal Gestational Diabetes: No Hemorrhage: No Obstetrical History Hx : 3 Hx Para: 2 Hx # Term Pregnancies: 2 Number of Living Children: 2 Hx Termination: No Hx Multiple Gestation: No Hx Ectopic : No Hx Stillbirth: No Hx Complication: No Hx Induced Hypertens: No Hx Maternal Gestational Diabet: No Hx Hemorrhage: No Delivery History Hx Dystocia: No Hx Forceps Assisted Delivery: No Hx Vacuum Extraction Assisted: No Hx Placenta Abnormality: No Hx Distress: No Hx Large For Gestational Age I: No Hx Small for Gestational Age I: No Hx Section: No Hx Vaginal Delivery Post C-Sec: No Hx Blood Disorders: No Adverse Rxn to Tranfusion: No Patient Past Medical History previously healthy Social History/Family History Alcohol Use: Denies Use Smoking Cessation: Never smoker 2nd Hand Smoke Exposure: No Immunizations Influenza Vaccine Up-to-Date: No; Not Current Hepatitis A: No Hepatitis B: No Tetanus Booster (TDap): Unknown Rubella: not immune RPR/VDRL: Negative GBS Status: Negative HBsAG: Negative OB - Admission Exam Physical Exam Heart: Rhythm Normal Lungs: Clear Abdomen: Non tender Extremities: Normal Cervical Dilatation: 9cm Effacement: 100% Station: +1 Membranes: Intact Heart Rate: 120's Accelerations: Accelerations Present Decelerations: No Decelerations Short Term Variability: Present Blender Snuff Variability: Average (6-25) Contractions on Admission: < 5 Minutes Apart Intensity: Moderate Labs Laboratory Tests Test 10/18/22 04:56 Range/Units White Blood Count 7.0 4.3-11.0 10^3/uL Red Blood Count 3.72 L 3.80-5.11 10^6/uL Hemoglobin 12.6 11.5-16.0 g/dL Hematocrit 36 35-52 % Mean Corpuscular Volume 95 80-99 fL Mean Corpuscular Hemoglobin 34 25-34 pg Mean Corpuscular Hemoglobin Concent 36 32-36 g/dL Red Cell Distribution Width 12.2 10.0-14.5 % Platelet Count 164 130-400 10^3/uL Mean Platelet Volume 9.5 9.0-12.2 fL Immature Granulocyte % (Auto) 0 % Neutrophils (%) (Auto) 72 42-75 % Lymphocytes (%) (Auto) 20 12-44 % Monocytes (%) (Auto) 7 0-12 % Eosinophils (%) (Auto) 0 0-10 % Basophils (%) (Auto) 0 0-10 % Neutrophils # (Auto) 5.0 1.8-7.8 10^3/uL Lymphocytes # (Auto) 1.4 1.0-4.0 10^3/uL Monocytes # (Auto) 0.5 0.0-1.0 10^3/uL Eosinophils # (Auto) 0.0 0.0-0.3 10^3/uL Basophils # (Auto) 0.0 0.0-0.1 10^3/uL Immature Granulocyte # (Auto) 0.0 0.0-0.1 10^3/uL Syphilis Total Antibody Negative Negative OB - Assessment/Plan/Diagnosis Assessment Assessment: active labor Admission Dx [id number] Admit for Labor Admission Status: Inpatient Order (span 2 midnights) Reason for Inpatient Admission: Active labor Plan Plan: Expectant Management Copy Copies To 1: CARMELINA MACIAS VICTORIA A DO October 18, 2022 06:11
--- NOTE | 2022-10-18 06:28 | OB Labor & Delivery Record ---
Vag Delivery Note Vag Delivery Note Date of Delivery: 10/18/22 Preoperative Diagnosis: Kassidy Mcclellan is a (22 /Para 3 / 2, Gestational Age (wks)38with [ ] Postoperative Diagnosis: Same Surgeon: IRAJ HIGUERA Billing And Quality Technician: [] Anesthesia: None Delivery Type: Spontaneous vaginal delivery Findings: Liveborn female at 0516 on 10/18/2022 Apgars 8/9 weight 7 pounds 14 ounces 3560 g Viable [] , apgars [], weight [] Lacerations: None Intact placenta with 3 vessel cord. No nuchal cord, body cord or shoulder dystocia Estimated Blood Loss: 650 ml Complications: None Condition: Stable Description of Procedure: The patient is a 22 year old female who presented in active labor. She was admitted and informed consent was obtained. The patient was to complete and set up for delivery. The patient pushed for approximately 5 minutes to deliver the head in an JULEE position. The mouth and nose were bulb suctioned. The anterior shoulder (right) was delivered followed by the posterior shoulder and the rest the . The was placed on the maternal abdomen. After 60 seconds the cord was clamped and then cut. At this point we lost our IV access so we gave 10 units of Pitocin IM. Cord bloods were obtained and the placenta delivered spontaneously intact with three-vessel cord. The cervix, vagina, perianal and perineal areas were all inspected there were no lacerations. Quantitative blood loss (QBL) was 650 cc. The mother and tolerated the procedure well and recovered in the room in stable condition. All sponge and instrument counts were correct x2. Vitals - Labs Labs Laboratory Tests 10/18/22 04:56: White Blood Count 7.0, Red Blood Count 3.72L, Hemoglobin 12.6, Hematocrit 36, Mean Corpuscular Volume 95, Mean Corpuscular Hemoglobin 34, Mean Corpuscular Hemoglobin Concent 36, Red Cell Distribution Width 12.2, Platelet Count 164, Mean Platelet Volume 9.5, Immature Granulocyte % (Auto) 0, Neutrophils (%) (Auto) 72, Lymphocytes (%) (Auto) 20, Monocytes (%) (Auto) 7, Eosinophils (%) (Auto) 0, Basophils (%) (Auto) 0, Neutrophils # (Auto) 5.0, Lymphocytes # (Auto) 1.4, Monocytes # (Auto) 0.5, Eosinophils # (Auto) 0.0, Basophils # (Auto) 0.0, Immature Granulocyte # (Auto) 0.0, Syphilis Total Antibody Negative IRAJ HIGUERA DO October 18, 2022 06:28
--- NOTE | 2022-10-18 06:31 | Discharge Summary ---
Discharge Summary Hospital Course Problems Reviewed?: Yes Hospital Course Date of Admission: October 18, 2022 at 04:38 Admission Diagnosis : Family Physician/Provider: Khadra Mai MD Date of Discharge: 10/18/22 Discharge Diagnosis: s/p vaginal delivery Hospital Course: Patient was admitted for Active labor delivered a liveborn . course was noneventful. Pt was discharged to home with DC instructions. Labs and Pending Lab Test: Laboratory Tests 10/18/22 04:56: White Blood Count 7.0, Red Blood Count 3.72L, Hemoglobin 12.6, Hematocrit 36, Mean Corpuscular Volume 95, Mean Corpuscular Hemoglobin 34, Mean Corpuscular Hemoglobin Concent 36, Red Cell Distribution Width 12.2, Platelet Count 164, Mean Platelet Volume 9.5, Immature Granulocyte % (Auto) 0, Neutrophils (%) (Auto) 72, Lymphocytes (%) (Auto) 20, Monocytes (%) (Auto) 7, Eosinophils (%) (Auto) 0, Basophils (%) (Auto) 0, Neutrophils # (Auto) 5.0, Lymphocytes # (Auto) 1.4, Monocytes # (Auto) 0.5, Eosinophils # (Auto) 0.0, Basophils # (Auto) 0.0, Immature Granulocyte # (Auto) 0.0, Syphilis Total Antibody Negative Home Meds Active No Active Prescriptions or Reported Medications Activity: Activity as Tolerated NO SMOKING: NO SMOKING Nothing Inside Vagina: No Douching, No Homeland, No Tampons Discharge Diet: No Restrictions, Regular Diet Return to The Hospital For: Increased pain, increased bleeding, temperature over 100.4 Discharge Physical Examination Allergies: Coded Allergies: No Known Drug Allergies (Unverified , 08/23/19) Discharge Summary Date of Admission October 18, 2022 at 04:38 Date of Discharge Supervisory-Addendum Brief Verification & Attestation Participated in pt care: history, MDM, physical, procedure Personally performed: exam, history, MDM, supervision of care Care discussed with: other (N/A) Procedures: performed I myselfPerformed direct patient care on this patient. IRAJ HIGUERA DO October 18, 2022 06:31
[2022-10-18] MEDS ORDERED: OXYTOCIN (PITOCIN) 10 UNIT/ML VIAL IM ONE (08:00)
[2022-10-18] MEDS ORDERED: METHYLERGONOVINE 0.2 MG/ML (METHERGINE) AMP IM ONE (08:00)
[2022-10-18] MEDS: IBUPROFEN 800 MG (MOTRIN) TAB PO SCH ×2 (10:24→16:43)
[2022-10-18] MEDS: ACETAMINOPHEN 500 MG TAB (TYLENOL) PO SCH ×2 (10:24→16:43)
[2022-10-18] MEDS: PRENATAL VITAMIN 1 EA TAB PO SCH (20:57)
[2022-10-18] MEDS: DOCUSATE SODIUM 100 MG (COLACE) CAP PO SCH (20:57)
[2022-10-19 00:30] VITALS: BP 102/63
[2022-10-19] MEDS: ACETAMINOPHEN 500 MG TAB (TYLENOL) PO SCH ×3 (00:30→07:25)
[2022-10-19] MEDS: DOCUSATE SODIUM 100 MG (COLACE) CAP PO SCH ×2 (00:30→08:54)
[2022-10-19] MEDS: IBUPROFEN 800 MG (MOTRIN) TAB PO SCH ×2 (00:30→07:24)
[2022-10-19 04:20] VITALS: BP 90/56
[2022-10-19 06:23] LABS: BASOPHILS % (AUTO) 0 % (0-10); EOSINOPHILS # (AUTO) 0.1 10^3/uL (0.0-0.3); EOSINOPHILS % (AUTO) 1 % (0-10); HEMATOCRIT 30 % (35-52); HEMOGLOBIN 10.3 g/dL (11.5-16.0); LYMPHOCYTES % (AUTO) 28 % (12-44); MEAN CORPUSCULAR HEMOGLOBIN 34 pg (25-34); MEAN CORPUSCULAR HGB CONC 34 g/dL (32-36); MEAN CORPUSCULAR VOLUME 98 fL (80-99); MEAN PLATELET VOLUME 10.2 fL (9.0-12.2); MONOCYTES # (AUTO) 0.5 10^3/uL (0.0-1.0); MONOCYTES % (AUTO) 7 % (0-12); NEUTROPHILS # (AUTO) 4.5 10^3/uL (1.8-7.8); NEUTROPHILS % (AUTO) 63 % (42-75); PLATELET COUNT 174 10^3/uL (130-400); WHITE BLOOD COUNT 7.1 10^3/uL (4.3-11.0)
[2022-10-19] MEDS: PRENATAL VITAMIN 1 EA TAB PO SCH (07:24)
--- NOTE | 2022-10-19 08:33 | Postpartum Progress Note ---
Note Note Day # 1 Date of Delivery: 10/18/22 Preoperative Diagnosis: Kassidy Mcclellan is a (22 /Para 3 / 2,Gesta tional Age (wks)38with [ ] Postoperative Diagnosis: Same Surgeon: IRAJ HIGUERA Entertainer & Comic: [] Anesthesia: None Delivery Type: Spontaneous vaginal delivery Findings: Liveborn female at 0516 on 10/18/2022 Apgars 8/9 weight 7 pounds 14 ounces 3560 g Viable [] , apgars [], weight [] Lacerations: None Intact placenta with 3 vessel cord. No nuchal cord, body cord or shoulder dystocia Estimated Blood Loss: 650 ml Complications: None Condition: Stable Description of Procedure: The patient is a 22 year old female who presented in active labor. She was admitted and informed consent was obtained. The patient was to complete and set up for delivery. The patient pushed for approximately 5 minutes to deliver the head in an JULEE position. The mouth and nose were bulb suctioned. The anterior shoulder (right) was delivered followed by the posterior shoulder and the rest the . The infant was placed on the maternal abdomen. After 60 seconds the cord was clamped and then cut. At this point we lost our IV access so we gave 10 units of Pitocin IM. Cord bloods were obtained and the placenta delivered spontaneously intact with three-vessel cord. The cervix, vagina, perianal and perineal areas were all inspected there were no lacerations. Quantitative blood loss (QBL) was 650 cc. The mother and tolerated the procedure well and recovered in the room in stable condition. All sponge and instrument counts were correct x2. Vitals-Labs Vitals - Labs Labs Laboratory Tests 10/18/22 04:56: White Blood Count 7.0, Red Blood Count 3.72L, Hemoglobin 12.6, Hematocrit 36, Mean Corpuscular Volume 95, Mean Corpuscular Hemoglobin 34, Mean Corpuscular Hemoglobin Concent 36, Red Cell Distribution Width 12.2, Platelet Count 164, Mean Platelet Volume 9.5, Immature Granulocyte % (Auto) 0, Neutrophils (%) (Auto) 72, Lymphocytes (%) (Auto) 20, Monocytes (%) (Auto) 7, Eosinophils (%) (Auto) 0, Basophils (%) (Auto) 0, Neutrophils # (Auto) 5.0, Lymphocytes # (Auto) 1.4, Monocytes # (Auto) 0.5, Eosinophils # (Auto) 0.0, Basophils # (Auto) 0.0, Immature Granulocyte # (Auto) 0.0, Syphilis Total Antibody Negative Subjective: Patient is without complaints. Ambulating, voiding. Tolerating a regular diet without nausea or vomiting. Normal lochia. Pain is well controlled with oral pain medications. [] feeding. Declines discharge meds. Will follow up with Dr. Mai in [place] 6 weeks Objective: VSS/AF, CBC with HCT 30 Physical Exam: General - Alert and oriented, no apparent distress Abdomen - Soft, appropriately tender to palpation, non-distended, fundus firm at U-6 Extremities - no edema, negative Patty's bilaterally Assessment: [] post- day # 1 status post vaginal delivery. Recovering well, hemodynamically stable Plan: Routine care. Discharge home today Plan for discharge: Follow up with Dr. Mai in 6 weeks. Routine discharge instructions. Vitals - Labs Vital Signs - I&O Vital Signs Date Time Temp Pulse Resp B/P (MAP) Pulse Ox O2 Delivery O2 Flow Rate FiO2 10/19/22 04:20 36.5 64 18 90/56 (67) 96 Room Air 10/19/22 00:30 36.3 60 18 102/63 (76) 97 Room Air 10/18/22 20:05 36.2 61 18 97/56 (70) 97 Room Air 10/18/22 14:00 36.5 64 18 113/67 (82) 10/18/22 09:51 54 18 106/55 (72) I & O 10/19/22 07:00 Intake Total 500 ml Balance 500 ml Labs Laboratory Tests 10/19/22 05:39: White Blood Count 7.1, Red Blood Count 3.05L, Hemoglobin 10.3L, Hematocrit 30L, Mean Corpuscular Volume 98, Mean Corpuscular Hemoglobin 34, Mean Corpuscular Hemoglobin Concent 34, Red Cell Distribution Width 12.8, Platelet Count 174, Mean Platelet Volume 10.2, Immature Granulocyte % (Auto) 0, Neutrophils (%) (Auto) 63, Lymphocytes (%) (Auto) 28, Monocytes (%) (Auto) 7, Eosinophils (%) (Auto) 1, Basophils (%) (Auto) 0, Neutrophils # (Auto) 4.5, Lymphocytes # (Auto) 2.0, Monocytes # (Auto) 0.5, Eosinophils # (Auto) 0.1, Basophils # (Auto) 0.0, Immature Granulocyte # (Auto) 0.0 GABE BEAULIEU DO October 19, 2022 08:33
[2022-10-19 08:54] VITALS: BP 101/68
== END 2022-10-19 12:05 | disposition home or self-care (01) | DRG 807 ==
LOC: WSo 04:29 → LDRP 04:30 → WSo 04:37 → LDRP 04:38
PROVIDERS: ADMIT Obstetrics & Gynecology; ATTEND Obstetrics & Gynecology
PROC: 10E0XZZ Delivery of Products of Conception, External Approach (ICD-10-PCS; principal; 2022-10-18)
DX: O80 Encounter for full-term uncomplicated delivery (principal); Z37.0 Single live birth; Z3A.38 38 weeks gestation of pregnancy
CPT/HCPCS: 36415; 85025; 86780; 86850; 86900; 86901